=== PATIENT | male | born 1970 | race Caucasian/White ===

== ENCOUNTER 2021-04-14 12:10 | Inpatient (IN) | payer OTHER ==
[~2021-04-14] VITALS: Ht 182.9 cm; Wt 98.9 kg
[2021-04-14 12:49] LABS: HEMOGLOBIN 11.9 gm/dl (14.0-17.5); RED BLOOD COUNT 4.4 M/UL (4.20-5.50); WHITE BLOOD COUNT 12.9 K/UL (4.5-11.0)
[2021-04-14 13:17] LABS: BUN/CREATININE RATIO 20 (0-10)
[2021-04-14] MEDS ORDERED: CLOPIDOGREL75 MG PO (16:12)
[2021-04-14] MEDS ORDERED: PROZAC20 MG PO (16:12)
[2021-04-14] MEDS ORDERED: HYDROCHLOROTH12.5 MG PO (16:13)
[2021-04-14] MEDS ORDERED: CRESTOR40 MG PO (16:13)
[2021-04-14] MEDS ORDERED: ISOSORBIDE MONO60 MG PO (16:13)
[2021-04-14] MEDS ORDERED: OZEMPIC1 MG/0.71 SQ (16:14)
[2021-04-14] MEDS ORDERED: DRISDOL1250 MCG PO (16:14)
[2021-04-14] MEDS ORDERED: TRAZODONE HCL50 MG PO (16:14)
[2021-04-14] MEDS ORDERED: JARDIANCE25 MG PO (16:15)
[2021-04-14] MEDS ORDERED: MUCUS RELIEF600 MG PO (16:15)
[2021-04-14] MEDS ORDERED: METFORMIN HCL1000 MG PO (16:16)
[2021-04-14] MEDS ORDERED: PROAIR DIGIHAL90 MCG INH (16:16)
[2021-04-14] MEDS ORDERED: FAMOTIDINE40 MG PO (16:16)
[2021-04-14] MEDS ORDERED: METOPROLOL TAR100 MG PO (16:17)
[2021-04-14] MEDS ORDERED: PROMETHAZINE HC25 M1 PO (16:17)
[2021-04-14] MEDS ORDERED: MAGNESIUM OXID400 M1 PO (16:18)
[2021-04-14] MEDS ORDERED: AMLODIPINE BESY10 MG PO (16:19)
[2021-04-14] MEDS ORDERED: LISINOPRIL40 MG PO (16:19)
[2021-04-14] MEDS ORDERED: PROTONIX40 MG PO (16:20)
[2021-04-14] MEDS ORDERED: GABAPENTIN800 MG PO (16:20)
[2021-04-14] MEDS ORDERED: HYDROCODON-ACE1 EAC6 PO (16:20)
[2021-04-14] MEDS ORDERED: EXCEDRIN EXTRA1 EACH PO (16:21)
[2021-04-14] MEDS ORDERED: JANUVIA100 MG PO (16:21)
[2021-04-14] MEDS ORDERED: ASPIRIN325 MG PO (16:22)
[2021-04-14] MEDS ORDERED: VITAMIN C500 M4 PO (16:22)
[2021-04-15 03:26] LABS: HEMOGLOBIN 12.3 gm/dl (14.0-17.5); RED BLOOD COUNT 4.58 M/UL (4.20-5.50); WHITE BLOOD COUNT 11.9 K/UL (4.5-11.0)
[2021-04-15 04:24] LABS: BUN/CREATININE RATIO 22 (0-10)
[2021-04-16 04:59] LABS: RED BLOOD COUNT 4.93 M/UL (4.20-5.50)
[2021-04-16 05:00] LABS: WHITE BLOOD COUNT 8.1 K/UL (4.5-11.0)
[2021-04-16 05:35] LABS: BUN/CREATININE RATIO 39 (0-10)
[2021-04-17 04:58] LABS: RED BLOOD COUNT 5.08 M/UL (4.20-5.50)
[2021-04-17 05:19] LABS: BUN/CREATININE RATIO 48 (0-10)
--- NOTE | 2021-04-17 15:45 | NUR ---
PT TRANSFERED TO MED SURG ROOM [id number] PER MD ORDERS
[2021-04-18 06:47] LABS: BUN/CREATININE RATIO 47 (0-10)
--- NOTE | 2021-04-18 09:47 | NUR ---
PATIENT ON 7L HFNC SITTING UP ON SIDE OF BED 85% PATIENT STANDING ON 7L HFNC SATS 79-81%
[2021-04-19 06:26] LABS: HEMOGLOBIN 13.1 gm/dl (14.0-17.5); RED BLOOD COUNT 4.86 M/UL (4.20-5.50)
[2021-04-19 06:29] LABS: WHITE BLOOD COUNT 7.4 K/UL (4.5-11.0)
[2021-04-19 06:38] LABS: BUN/CREATININE RATIO 43 (0-10)
[2021-04-20 06:34] LABS: BUN/CREATININE RATIO 40 (0-10)
--- NOTE | 2021-04-21 00:25 | NUR ---
Patient found lying on the floor face first. Patient stated that he was trying to use the bedside commode but fell. Patient stated he did not feel dizzy and he did not pass out. Patient helped back to bed. Patient's vitals are stable: BP 144/92, HR 100, and 02 saturation of 91% on HFNC. Patient stated that his left cheek hurt where he fell, but he stated he did not hurt anywhere else. Dr. Yee notified at 0031. Hand Tool [employer]apper Leeanne TOWNSEND notified at 0034. Pharmacy notified of fall so they can review medications. Dr. Yee ordered a facial xray.
[2021-04-21 08:16] LABS: BUN/CREATININE RATIO 41 (0-10)
--- NOTE | 2021-04-21 13:59 | NUR ---
RESPIRATORY INFORMED THE NURSE THAT THE PATIENT HAD BECOME MORE SOB AND LUNG SOUNDS HAD DEVELOPED CRACKLES. PATIENTS O2 HAD TO BE TURNED UP FROM 12L HIFLO NASAL CANULA TO 15L 02 NASAL CANULA. PROVIDER HAS BEEN NOTIFIED AND ORDERS FOR CHEST X-RAY AND ABG'S. WILL CONTINUE TO MONITOR.
[2021-04-22 05:48] LABS: HEMOGLOBIN 12.8 gm/dl (14.0-17.5); RED BLOOD COUNT 4.79 M/UL (4.20-5.50); WHITE BLOOD COUNT 8.7 K/UL (4.5-11.0)
[2021-04-22 06:42] LABS: BUN/CREATININE RATIO 33 (0-10)
[2021-04-23 06:20] LABS: HEMOGLOBIN 12.9 gm/dl (14.0-17.5); RED BLOOD COUNT 4.84 M/UL (4.20-5.50); WHITE BLOOD COUNT 9.1 K/UL (4.5-11.0)
[2021-04-23 06:44] LABS: BUN/CREATININE RATIO 42 (0-10)
[2021-04-24 07:58] LABS: HEMOGLOBIN 12.6 gm/dl (14.0-17.5); RED BLOOD COUNT 4.92 M/UL (4.20-5.50)
[2021-04-24 08:30] LABS: BUN/CREATININE RATIO 47 (0-10)
[2021-04-24 17:20] LABS: URINE CREATININE 24.9 mg/dL
[2021-04-25 06:45] LABS: HEMOGLOBIN 12.3 gm/dl (14.0-17.5); RED BLOOD COUNT 4.66 M/UL (4.20-5.50)
[2021-04-25 06:47] LABS: WHITE BLOOD COUNT 6.7 K/UL (4.5-11.0)
[2021-04-25 07:07] LABS: BUN/CREATININE RATIO 33 (0-10)
[2021-04-27 07:40] LABS: BUN/CREATININE RATIO 47 (0-10)
[2021-04-28] MEDS ORDERED: PREDNISONE10 MG PO (14:39)
[2021-04-28] MEDS ORDERED: IPRAT-ALBUT 0.5-3 ML NEB (14:39)
[2021-04-28] MEDS ORDERED: AUGMENTIN 875-1 EACH PO (14:39)
[2021-04-28] MEDS ORDERED: LOPRESSOR 25 MG25 MG PO (14:39)
== END 2021-04-28 18:31 | disposition home health service (06) | DRG 871 ==
LOC: ER1 12:10 → CDU 14:38 → M/S 14:38 → PROG CARE 17:34 → M/S 04-17 15:50
PROVIDERS: Emergency Medicine; Internal Medicine; Physician Assistant Medical; ADMIT Internal Medicine
DX: A41.9 Sepsis, unspecified organism (principal); J18.9 Pneumonia, unspecified organism; J15.9 Unspecified bacterial pneumonia; J80 Acute respiratory distress syndrome; R65.21 Severe sepsis with septic shock; E87.1 Hypo-osmolality and hyponatremia; J44.0 Chronic obstructive pulmonary disease with (acute) lower respiratory infection; J44.1 Chronic obstructive pulmonary disease with (acute) exacerbation; I12.9 Hypertensive chronic kidney disease with stage 1 through stage 4 chronic kidney disease, or unspecified chronic kidney disease; J84.10 Pulmonary fibrosis, unspecified; I25.10 Atherosclerotic heart disease of native coronary artery without angina pectoris; E83.42 Hypomagnesemia; N18.30 Chronic kidney disease, stage 3 unspecified; E11.22 Type 2 diabetes mellitus with diabetic chronic kidney disease; E78.5 Hyperlipidemia, unspecified; G89.29 Other chronic pain; E11.65 Type 2 diabetes mellitus with hyperglycemia; F41.9 Anxiety disorder, unspecified; E66.9 Obesity, unspecified; E11.43 Type 2 diabetes mellitus with diabetic autonomic (poly)neuropathy; W01.0XXA Fall on same level from slipping, tripping and stumbling without subsequent striking against object, initial encounter; Z95.1 Presence of aortocoronary bypass graft; Z98.890 Other specified postprocedural states; Z79.82 Long term (current) use of aspirin; Z79.899 Other long term (current) drug therapy; Z79.02 Long term (current) use of antithrombotics/antiplatelets; Z82.49 Family history of ischemic heart disease and other diseases of the circulatory system; Z86.16 Personal history of COVID-19; Z87.891 Personal history of nicotine dependence; Z68.29 Body mass index [BMI] 29.0-29.9, adult
CPT/HCPCS: ECHO; 36415; 36600; 70150; 71045; 80048; 80053; 80202; 81001; 82533; 82550; 82553; 82570; 82575; 82803; 82962; 83036; 83605; 83690; 83735; 83874; 83880; 84156; 84484; 85025; 85027; 85610; 85730; 86140; 87040; 87086; 87278; 93005; 93306; 94640; 94664; 94760; 94761; 96374; 96375; 97110-GP-CQ; 97116-GP-CQ; 97161; 97530; 97530-GP-CQ; 99285; C9113; J0692; J1650; J1940; J2185; J2920; J2930; J3370; J7030; J7050; J7070; Q9967; U0002

== ENCOUNTER → 2021-05-19 | Outpatient (CLI) | payer OTHER ==
[~2021-05-19] MED LIST: AMLODIPINE BESY10 MG PO; ASPIRIN325 MG PO; AUGMENTIN 875-1 EACH PO; CLOPIDOGREL75 MG PO; CRESTOR40 MG PO; DRISDOL1250 MCG PO; EXCEDRIN EXTRA1 EACH PO; FAMOTIDINE40 MG PO; GABAPENTIN800 MG PO; HYDROCHLOROTH12.5 MG PO; HYDROCODON-ACE1 EAC6 PO; IPRAT-ALBUT 0.5-3 ML NEB; ISOSORBIDE MONO60 MG PO; JANUVIA100 MG PO; JARDIANCE25 MG PO; LISINOPRIL40 MG PO; LOPRESSOR 25 MG25 MG PO; MAGNESIUM OXID400 M1 PO; METFORMIN HCL1000 MG PO; METOPROLOL TAR100 MG PO; MUCUS RELIEF600 MG PO; OZEMPIC1 MG/0.71 SQ; PREDNISONE10 MG PO; PROAIR DIGIHAL90 MCG INH; PROMETHAZINE HC25 M1 PO; PROTONIX40 MG PO; PROZAC20 MG PO; TRAZODONE HCL50 MG PO; VITAMIN C500 M4 PO
== END ==
LOC: HEART 5 14:58
DX: J18.9 Pneumonia, unspecified organism (principal); U09.9 Post COVID-19 condition, unspecified
CPT/HCPCS: 94060; 94729

== ENCOUNTER → 2021-12-20 | Outpatient (CLI) | payer OTHER | LOC: KOH-I 14:00 | DX: Z86.16 Personal history of COVID-19 (principal); J84.9 Interstitial pulmonary disease, unspecified; J43.9 Emphysema, unspecified | CPT/HCPCS: 71250 ==